=== PATIENT | female | born 1985 | race Two or more races ===

== ENCOUNTER 2016-03-28 19:36 | Emergency (ER) | payer OTHER ==
[~2016-03-28] VITALS: Ht 170.2 cm; Wt 86.0 kg
[2016-03-28] MEDS ORDERED: IBUP-1546 PO (19:50)
[2016-03-28] MEDS ORDERED: LIDOCAINE HCL BUFFERED 1% W/EPI 1:100,000 20 ML VIAL INJ ONE (21:45)
[2016-03-28] MEDS ORDERED: PERTUSS(ACELL),DIPH,TET VAC/PF 0.5 ML VIAL IM ONE (21:45)
[2016-03-28 23:23] VITALS: BP 120/70
== END 2016-03-28 23:25 | disposition home or self-care (01) ==
LOC: EMS 19:38
DX: S61.412A Laceration without foreign body of left hand, initial encounter (principal); Z88.0 Allergy status to penicillin; W45.8XXA Other foreign body or object entering through skin, initial encounter; Y93.89 Activity, other specified; Y92.89 Other specified places as the place of occurrence of the external cause; Y99.8 Other external cause status
CPT/HCPCS: 12002; 90471; 90715; 99283; J3490